=== PATIENT | male | born 1945 | race Caucasian/White ===

== ENCOUNTER 2017-09-28 22:22 | Inpatient (IN) | END 2017-09-30 18:15 | DRG 377 ==

== ENCOUNTER 2018-04-04 06:30 | Inpatient (IN) | payer OTHER ==
[~2018-04-04] VITALS: Ht 182.9 cm; Wt 80.0 kg
[2018-04-04 07:45] VITALS: BP 103/63; PULSE 78; RESP 17
--- NOTE | 2018-04-04 07:45 | NUR ---
PACU PT ARRIVED BY VIA TRANSPORT WITH [facility], PT SCHEDULED FOR SURGERY AT 1000, PER PT HE ARRIVED AT HOSPITAL AT "0530'" THIS MORNING AND WAS TOLD BY STAFF AT [facility], STAFF MEMBER THAT HIS SURGERY WAS SCHEDULED AT 0730 THIS MORNING. Addendum: 04/04/18 at 1013 by TYRONE ALVES RN Amended: Links added.
--- NOTE | 2018-04-04 07:50 | NUR ---
PACU ON ARRIVAL TO PACU PT NOTED TO HAVE REDNESS/EXCORIATION TO SACRAL/BUTTOCK AND UPPER BACK AREA. PICTURES TAKEN. PER PT, EXCORIATION IS "BEING TREATED AT [facility] WITH OINTMENT OR CREAM" Addendum: 04/04/18 at 1016 by TYRONE ALVES RN Amended: Links added.
[2018-04-04 09:32] VITALS: Ht 182.9 cm; Wt 80.0 kg
--- NOTE | 2018-04-04 10:39 | PREAC ---
Date/Time of Note Date/Time of Note DATE: 04/04/18 TIME: 10:33 Anesthesia Eval and Record Evaluation Time Pre-Procedure Interview DATE: 04/04/18 TIME: 10:33 Age 72 Sex male NPO: 8 hrs Preoperative diagnosis Cervical Spine Fracture Planned procedure Posterior Cervical Spine Occiput to C4 Instrumented Fusion Possible Laminectomy. Past Medical History Past Medical History: Includes Cardio: HTN, Dyslipidemia, CAD, CHF (mild) Endo: Hypothyroid Neuro: Other (Hx of Cervcical Neck Fracture 2 months ago due to fall) Heme: Anemia, Other (Hx of Distal DVT) Surgery & Anesthesia Issues No known issue Meds Anticoagulation: No Beta Igor within 24 hr: Yes No Active Prescriptions or Reported Meds Meds reviewed: Yes Allergies Coded Allergies: No Known Allergy (Unverified , 09/29/17) Allergies Reviewed: Yes Labs/Studies Labs Reviewed: Reviewed by anesthesiologist Blood Bank Test 04/04/18 08:24 Antibody Screen NEGATIVE Blood Product Summary Counts Blood Type A POSITIVE Crossmatch Red Blood Cells test: N/A Studies: ECG (NSR), CXR (requested) Pre-procedure Exam Last vitals Vital Signs Date Temp Pulse Resp B/P (MAP) Pulse Ox O2 O2 Flow FiO2 Time Delivery Rate 04/04/18 98.2 78 17 103/63 99 Room Air 07:45 (76) Airway: Adequate mouth opening, Adequate thyromental dist Mallampati: Mallampati III Teeth: Normal Lung: Normal Heart: Normal ASA Physical Status ASA physical status: 3 Emergency: None Planned Anesthetic General/MAC: ETT, A Line Planned Pain Management Parenteral pain med Pre-operative Attestations Prior to commencing anesthesia and surgery, the patient was re-evaluated, there was verification of: *The patient's identity *The results of appropriate recent lab work and preoperative vital signs *The above evaluation not changing prior to induction *Anesthetic plan, risk benefits, alternative and complications discussed with patient/family; questions answered; patient/family understands, accepts and wishes to proceed. MARY MOSS MD Apr 04, 2018 10:39
[2018-04-04] MEDS ORDERED: CEFAZOLIN 1 GM INJ ONE (10:43)
[2018-04-04] MEDS ORDERED: ROCURONIUM 50 MG INJ ONE (10:43)
[2018-04-04] MEDS ORDERED: PROPOFOL 0 ML ONE (10:43)
[2018-04-04] MEDS ORDERED: MIDAZOLAM 1 MG/ML 2 ML INJ ONE (10:44)
[2018-04-04] MEDS ORDERED: D5W-0.45 NACL + KCL 20 MEQ 1,000 ML IV SCH (11:38)
[2018-04-04 11:45] VITALS: BP 117/69; PULSE 64; RESP 17
[2018-04-04] MEDS ORDERED: NACL 0.9% 3 ML SYG IV SCH (12:30)
[2018-04-04] MEDS ORDERED: ACETAMINOPHEN 325 MG TAB PO PRN (12:30)
--- NOTE | 2018-04-04 12:44 | NUR ---
PACU PT TRANSFERRED TO TELE ROOM 623 IN STABLE COND. SURGERY CANCELLED DUE TO NEW ONSET OF AFIB. PT AND SPOUSE UPDATED ON PLAN OF CARE BY . REPORT GIVEN TO [facility]. Addendum: 04/04/18 at 1550 by YTRONE ALVES RN Amended: Links added.
[2018-04-04 13:02] VITALS: BP 94/52; PULSE 97; RESP 16
[2018-04-04 13:20] VITALS: PULSE 100
[2018-04-04] MEDS: SOD CHLORIDE 0.9% 1,000 ML IV SCH ×3 (14:49→21:51)
--- NOTE | 2018-04-04 15:06 | HP ---
DATE OF ADMISSION: 04/04/2018 REASON FOR ADMISSION: Atrial fibrillation. HISTORY OF PRESENT ILLNESS: A 72-year-old male with history of T2 fracture following a traumatic fal l in September 2017, was electively admitted to undergo posterior cervical fusion. Preoperatively, he w as found to be in rapid atrial fibrillation. The patient has no previous history of atrial fibrillat ion. He denies any chest pain or shortness of breath. No abdominal pain, nausea, or vomiting. The patient had developed DVT previously and IVC filter was placed. He also was evaluated for GI ble ed and no source of bleeding was identified previously. SOCIAL HISTORY: The patient denies tobacco or alcohol use. PHYSICAL EXAMINATION: GENERAL: Well-developed, well-nourished male, who is in no apparent distress. VITAL SIGNS: Stable. He is afebrile. HEENT: Extraocular muscles intact. Pupils are equal and reactive to light bilaterally. Sclerae are anicteric. Oropharynx is clear and moist. NECK: Supple, no JVD, no carotid bruits. LUNGS: Clear to auscultation bilaterally. CARDIAC: Irregularly irregular. No audible murmurs or gallops. ABDOMEN: Soft, nontender, nondistended. Normoactive bowel sounds. EXTREMITIES: No clubbing, cyanosis or edema. NEUROLOGICAL: Grossly nonfocal. ASSESSMENT: 1. A 72-year-old male with newly diagnosed atrial fibrillation. 2. Chronic T2 fracture, awaiting the posterior cervical fusion. 3. History of previous DVT, status post IVC filter placement. 4. 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 PLAN: Placed in tele observation, 2D echo. Cardiology consultation was requested and case was discu ssed with Dr. Rushing. If patient is cleared by cardiology, we may proceed with cervical fusion in t he a.m. Dictated By: PRECIOUS KAYE/YAKOV Conf#: [id number] DID#: [id number]
--- NOTE | 2018-04-04 15:12 | NUR ---
Admitted to telemetry floor from PACU for new onset AFib. Here for planned laminectomy, was cancelled due to Afib. Oriented to room, call light use. Skin assessment done, photo taken. Notified Dr. Vizcarra of admission for orders. Discussed plan of care to pt.
[2018-04-04] MEDS ORDERED: SOD CHLORIDE 0.9% 500 ML IV ONE (15:30)
[2018-04-04] MEDS ORDERED: METOPROLOL 5 MG INJ IV PRN (15:30)
[2018-04-04] MEDS ORDERED: DIGOXIN 500 MCG INJ IV ONE (15:30)
[2018-04-04 16:01] VITALS: PULSE 83
--- NOTE | 2018-04-04 16:44 | RADRPT ---
Echocardiogram Report Patient Name: MIRTA MCCABEPatient ID: [id number] : 1945 (73y )Study Date: 04/04/2018 2:56:51 PM Gender: MAccession #: [id number] Tech: Jack Lopez [facility] Location: [facility] Ref.Physician: PRECIOUS MCKENZIE Height(Cm): BSA: Weight(Kg): Quality: Technically Difficult StudyAccount #: Procedures: Echocardiographic Report: Transthoracic echocardiogram with complete 2D, M-Mode, and doppler examination. Indications: Atrial Fibrillation. Measurements: 2D/M Mode Doppler Measurement Value Normal Range Measurement Value Normal Range LVIDd 2D 3.0 [ 4.2 - 5.8 ] cm AV Peak Jorge 1.1 [ 100.0 - 170.0 ] cm/sec LVIDs 2D 2.3 [ 2.5 - 4.0 ] cm AV Peak PG 5.0 [ 2.0 - 9.0 ] mmHg LVPWd 2D 0.7 [ 0.6 - 1.0 ] cm LVOT Peak Jorge 0.5 [ 70.0 - 110.0 ] cm/sec IVSd 2D 1.0 [ 0.6 - 1.0 ] cm LVOT Peak PG 1.0 [ 2.0 - 6.0 ] mmHg AoR Diam 2D 2.7 [ 2.6 - 3.4 ] cm MV E Peak Jorge 0.7 [ 60.0 - 130.0 ] cm/sec EDV 2D 36.2 [ 62.0 - 150.0 ] ml MV A Peak Ojrge 1.2 [ 100.0 - 120.0 ] cm/sec ESV 2D 18.7 [ 21.0 - 61.0 ] ml MV E/A 0.6 [ 0.8 - 1.5 ] ratio EF 2D 48.3 [ 52.0 - 72.0 ] percent MV Decel Time 120 [ 104 - 258 ] msec LA Dimen 2D 3.2 [ 3.0 - 4.0 ] cm Lat E` Jorge 0.1 [ 10.0 - 15.0 ] cm/sec Lateral E/E` 6.8 [ 1.0 - 2.0 ] ratio Med E` Jorge 0.1 cm/sec MV E/A 0.6 [ 0.8 - 1.5 ] ratio Findings: Left Ventricle: Lower limits of normal systolic function. Normal left ventricular cavity size. Normal left ventricular wall thickness. Ejection fraction is visually estimated at 45-50 %. Tissue Doppler/Mitral Doppler indices are consistent with impaired relaxation (Stage I diastolic dysfunction). These segments of the LV are hypokinetic anteroseptum mid segment and apical septum. Right Ventricle: Normal right ventricular size. Normal right ventricular systolic function. Left Atrium: The left atrium is normal in size. Right Atrium: The right atrium is normal in size. Mitral Valve: Normal appearance of the mitral valve. Mild mitral annular calcification. Trace mitral regurgitation. Aortic Valve: Normal appearance of the aortic valve. Tricuspid Valve: Unable to obtain RVSP due to minimal presence of tricuspid regurgitation. Pulmonic Valve: Pulmonic valve not well visualized. Pericardium: Normal pericardium with no significant pericardial effusion. Aorta: Normal aortic root. IVC: The IVC is not well visualized. Conclusions: Lower limits of normal systolic function. Normal left ventricular cavity size. Normal left ventricular wall thickness. Ejection fraction is visually estimated at 45-50 %. Tissue Doppler/Mitral Doppler indices are consistent with impaired relaxation (Stage I diastolic dysfunction). These segments of the LV are hypokinetic anteroseptum mid segment and apical septum. Normal appearance of the mitral valve. Mild mitral annular calcification. Trace mitral regurgitation. Unable to obtain RVSP due to minimal presence of tricuspid regurgitation. Electronically Signed By: Arvind Rushing 2018-04-04 16:43:41 PST
--- NOTE | 2018-04-04 16:48 | CONS ---
DATE OF ADMISSION: 04/04/2018 DATE OF CONSULTATION: 04/04/2018 REASON FOR CONSULTATION: Preoperative evaluation as well as atrial fibrillation. REQUESTING PHYSICIAN: Dr. Mckenzie. HISTORY OF PRESENT ILLNESS: Mr. Moon is a very pleasant 72-year-old male with the history of a prior fall with subsequent cervical neck fracture, prior SVT which patient does not remember the exa ct name, hypertension, coronary artery disease with an [place] in 1990 and states he underwent catheteriza tion at that time but did not have any stents placed, DVT since cervical neck fracture status post in ferior vena cava filter, GI bleed with the holding of Plavix, head and neck cancer status post XRT, h ypothyroidism who presented to undergo surgery for treatment of his cervical neck fracture and on azeb luation underwent an electrocardiogram which was concerning for atrial fibrillation/atrial flutter wi th rapid ventricular response and therefore the surgery was held. The patient was admitted to the lemetry floor. The patient denies chest pain, shortness of breath. He some neck discomfort. No sig nificant lower extremity weakness per patient. PAST MEDICAL HISTORY: As above in HPI. MEDICATIONS PRIOR TO ADMIT: None listed. MEDICATIONS CURRENTLY IN HOSPITAL: Tylenol. ALLERGIES: NO KNOWN DRUG ALLERGIES. SOCIAL HISTORY: Remote tobacco, quit since 1990. Social ETOH. No illicit drug use. FAMILY HISTORY: No history of sudden cardiac or early CAD. REVIEW OF SYSTEMS: As above in HPI. CONSTITUTIONAL: No fevers or chills. PULMONARY: No current shortness of breath. CARDIOVASCULAR: Paroxysmal atrial fibrillation. GASTROINTESTINAL: No vomiting. GENITOURINARY: No hematuria. MUSCULOSKELETAL: Degenerative joint disease. PSYCHIATRIC: The patient denies depression. NEUROLOGIC: No documented history of CVA. ENDOCRINE: No documented history of diabetes mellitus. PHYSICAL EXAMINATION: VITAL SIGNS: Temperature of 97.6, blood pressure ____/52, pulse 97, respiratory rate 16, satting 94% . GENERAL: The patient is alert, awake, no acute distress. NECK: Neck is in a cervical collar. CHEST: Fair air movement throughout. HEART: Currently tachycardic, regular rhythm, normal S1, S2, I/ systolic murmur. ABDOMEN: Positive bowel sounds, soft. EXTREMITIES: No significant pitting edema, 1+ pulses bilaterally posterior tibial. LABORATORY DATA: Most recently from on 09/2017, hemoglobin 12.1, platelet count 272, white count 3.5 . Sodium 136, potassium 3.4, creatinine of 0.5, BUN 9, AST 30, ALT 37. Troponin negative. Lipase 1 11. IMAGING STUDIES: As above in HPI with the chest x-ray reveals no evidence of acute cardiopulmonary d isease, question right upper lobe nodule. ECG reveals a rhythm most consistent with probably atrial fibrillation/atrial flutter and a rate of 1 13, normal axis, normal intervals, inferior and anteroseptal Qs, low voltage. IMPRESSIONS: 1. Preoperative evaluation prior to a cervical neck surgery in a patient with history of myocardial infarction in atrial fibrillation which possibly may be previously noted in the history is written as an SVT. 2. Abnormal electrocardiogram with inferior Qs. Assess for acute coronary syndrome. 3. Supraventricular tachycardia consistent most probably with atrial fibrillation/atrial flutter wit h the mild rapid ventricular response now back in sinus rhythm by telemetry, sinus rhythm/sinus tachy cardia. 4. History of cardiomyopathy with decreased left ventricular unknown EF at this time. 5. Status post prior fall, mechanical by description, with cervical neck fracture. 6. Cervical neck fracture. 7. Hypotension, borderline, with the history of hypertension on beta blockers at baseline. 8. History of myocardial infarction/coronary artery disease in 1990. RECOMMENDATIONS: 1. At this time, I would maintain the patient on telemetry monitoring to follow rhythm and rate cont rol closely. 2. We will give patient a dose of digoxin to assure good heart rate given the borderline hypertensio n at this time and therefore inability to give a beta jay. 3. Check a TSH to be sure subclinical hyperthyroid is not due to any bouts of tachyarrhythmias as th is patient does have a history of hypothyroidism and is on Synthroid. 4. We will complete to rule out for myocardial infarction to ensure the patient's EKG values are chr onic in nature which they most likely are and not due to any recent acute coronary syndrome. 5. We will check a 2D echo for assessment of the patient's ejection fraction, wall motion and major abnormalities. 6. Check a BNP to further assess his current volume status and give patient a small management of fl uid and follow blood pressure response. 6. Further recommendations pertaining to the surgical candidacy of this patient will be made after c ompletion of the above studies. Dictated By: ENRIQUETA KAPADIA/YAKOV Conf#: [id number] DID#: [id number] CC: FERMÍN ALCAZAR MD; PRECIOUS MCKENZIE MD;*EndCC*
[2018-04-04 19:30] VITALS: BP 104/63; PULSE 73; RESP 16
--- NOTE | 2018-04-04 20:27 | CONS ---
Assessment/Plan Assessment/Plan Assessment/Plan (Daily) Date of consultation: 04/04/2089 Consulting service: Neurosurgery This is a 72-year-old male who unfortunately had a slip and fall on a sprinkler approximately 6 months ago. This resulted in a odontoid fracture and an associated unilateral vertebral artery dissection but grossly sensorimotor intact. He was started on aspirin and Plavix at the recommendation of a neuro interventional specialist. The patient unfortunately developed GI bleed and anemia and underwent GI evaluation including scoping that apparently did not reveal any lesions. He also developed DVTs that required placement of IVC filter. The patient has been wearing a rigid cervical collar since the fall. He has been in an acute rehab/snf facility since his fall and has become overall very deconditioned with minimal mobility. The patient's type II odontoid fracture has not healed and as a matter of fact has become displaced. The patient moves around mostly with the use of a wheelchair at this time due to being overall deconditioned as well as a right knee contracture that has developed as a result of chronic knee joint pathology. The patient has been evaluated by me multiple times in clinic setting and we have attempted to schedule him for surgery multiple times in the past but the surgery he has had to be postponed due to various medical problems as discussed above. The patient was eventually cleared by his primary care physician as well as cardiology and was scheduled to undergo occipitocervical fusion today for the treatment of his nonhealed C2 fracture. As the patient was awaiting in the preoperative area prior to the scheduled operation, the patient developed new onset atrial fibrillation with rapid rate. However the patient was hemodynamically stable without chest pain or shortness of breath. After discussing the patient's new development with the anesthesiologist, we decided to postpone the patient's operation for today in order to be safe and minimize intraoperative complications. As the anesthesiologist recommended, the patient will require a new cardiology evaluation. I have subsequently discussed the patient's case with the hospitalist physician, Dr. Vizcarra who will help admit the patient and will subsequently consult cardiology for further evaluation. If the patient is cleared by cardiology, we will then do our best to reschedule the patient with this admission. The patient and his who are at bedside are very eager to proceed with the above operation but at the same time also understand the safety concerns and that we all have his best interest in mind. Past medical history: Please see above Allergies:[No known drug allergies] Review of systems: Denies chest pain or shortness of breath. Family history: Not contributory Social history: Denies EtOH, tobacco, illicit or recreational drug Physical examination: The patient is sitting up on the hospital bed next to his . He is pleasant. Patient is awake alert and oriented 4. Language is fluent. Face is symmetric. Shoulder shrugs are symmetric. Muscle bulk and tone is normal bilateral upper and lower extremities. Deep tendon reflexes are 1+ bilateral upper and lower extremities. Sensation to light touch is grossly normal bilateral upper and lower extremities. Motor strength is 4+ out of 5 bilateral upper and lower extremities except for the right knee extension and flexion that cannot be tested due to knee pain and a contracture that has developed at the joint. There is no Lakshmi sign present bilaterally. There is no dysdiadochokinesia. Toes are downgoing bilaterally. Gait testing has been deferred secondary to the right knee pain and contracture. CERVICAL SPINE: Patient is wearing a rigid cervical collar. There is some tenderness throughout the cervical spine. CERVICAL SPINE ACTIVE RANGE OF MOTION: Deferred due to the patient's fracture. Assessment/plan: The patient has been seen by cardiology and has undergone an echocardiogram. I am told that the patient will be cleared for surgery as long as the rest of his pending labs and tests come back as normal and that the patient remains hemodynamically stable overnight. The patient has been tentatively added to the operating room schedule for tomorrow. The patient and his have also been made aware of this. I have again discussed the risks and benefits of the above operation (occiput to C4 posterior instrumented fusion with use of autologous and allo bone graft and possible laminectomy) in great detail with the patient and his with the risks including bleeding, infection, weakness, numbness, paralysis, difficulty with speech, comatose state, bowel or bladder dysfunction, cerebrospinal fluid leak, injury to the adjacent tissue, failure of improvement of symptoms or worsening of symptoms, need for further surgeries including extension or revision of the instrumented fusion and decompression as well as those risks associated with surgery and general anesthesia including deep venous thrombosis, pulmonary embolism, pneumonia, heart attack, stroke, and . The patient's neck pain may or may not improve with the above procedure. I have also explained to the patient and his that overall the patient is very deconditioned, wheelchair-bound with multiple comorbidities including prior coronary artery disease, myocardial infarction, recent GI bleed and possible pulmonary embolism. All of these comorbidities increase the overall risk of the procedure. The patient and his fully understand the above discussion and wish to proceed with the above surgery. FERMÍN ALCAZAR MD Apr 04, 2018 20:27
--- NOTE | 2018-04-04 22:55 | NUR ---
Patient is refusing turning. I reeducated him on the importance of turning and how it has caused his skin breakdown on his buttocks, but he refuses to turn, saying it is too uncomfortable. New consent for procedure & blood transfusions for tomorrow's surgery signed by patient.
[2018-04-05] VITALS (11 sets, daily range): BP systolic 96–122; BP diastolic 55–68; PULSE 60–89; RESP 16–18
[2018-04-05] MEDS ORDERED: ROCURONIUM 50 MG INJ ONE (07:00)
[2018-04-05] MEDS ORDERED: CEFAZOLIN 1 GM INJ ONE (07:00)
[2018-04-05] MEDS ORDERED: ETOMIDATE 20 MG INJ ONE (07:00)
[2018-04-05] MEDS ORDERED: LIDOCAINE 2% (SDV) 5 ML INJ ONE (07:00)
--- NOTE | 2018-04-05 07:45 | NUR ---
EOSS N: A&Ox4. No complaints of pain. ANTHONY/L extremity neuro checks completed, no changes. R: RA, saturating well, no sob or dyspnea noted. CV: AF controlled. GI: NPO after midnight. : Urinal, approx 650 ml output INTEG: Possible stg 1 vs. excoriation r/t urine. Wound consult ordered. Low-air loss mattress ordered. MS: Bedrest. Refusing turns. Educated on necessity of turns. POC: Cervical fusion scheduled for this afternoon with Dr. Welch; cleared by cardio. Consent signed. Pre-op checklist completed. MRSA swabbed r/t SNF admit. Will endorse to AM nurse.
--- NOTE | 2018-04-05 10:27 | PN ---
DATE: 04/05/2018 SUBJECTIVE: The patient is doing well. No new complaints. Vital signs are stable. Heart rate is 6 6. Neck is with cervical collar. CHEST: Lungs clear to auscultation bilaterally. HEART: Regular rate and rhythm. No murmurs, rubs or gallops. ABDOMEN: Soft, nontender, nondistended, normoactive bowel sounds. EXTREMITIES: No clubbing, cyanosis, or edema. NEUROLOGIC: Grossly nonfocal. ASSESSMENT AND PLAN: 1. A 72-year-old male with chronic odontoid fracture. 2. Newly diagnosed atrial fibrillation, converted to normal sinus rhythm. 3. Mildly reduced ejection fraction of 45% to 50%. 4. History of deep venous thrombosis, status post inferior vena cava filter placement. PLAN: 1. May proceed with a posterior cervical fusion as previously scheduled. The patient was cleared by flexographic printing machinist, Dr. Rushing 2. Case was discussed with Dr. Welch. 3. The patient is aware of the plan of care. Dictated By: PRECIOUS KAYE/YAKOV Conf#: [id number] DID#: [id number]
--- NOTE | 2018-04-05 11:02 | CONS ---
Assessment/Plan Assessment/Plan Hospital Course (Demo Recall) IMPRESSIONS: 1. Preoperative evaluation prior to a cervical neck surgery in a patient with history of myocardial infarction in atrial fibrillation which possibly may be previously noted in the history is written as an SVT.-neg trop >3/EF 45% by echo this admit with no sig valve abnl. 2. Abnormal electrocardiogram with inferior Qs. Assess for acute coronary syndrome. 3. Supraventricular tachycardia consistent most probably with atrial fibrillation/atrial flutter with the mild rapid ventricular response now back in sinus rhythm by telemetry, sinus rhythm/sinus tachycardia.- Now back in SR 4. History of cardiomyopathy with decreased left ventricular unknown EF at this time. 5. Status post prior fall, mechanical by description, with cervical neck fracture. 6. Cervical neck fracture. 7. Hypotension, borderline, with the history of hypertension on beta blockers at baseline. 8. History of myocardial infarction/coronary artery disease in 1990. Recc: -Tele -Patient ok to proceed to OR at moderate CV risk. Check post-op ECG and watch for signs/sx of cardiovascular complications including but not limited to onset of chest pain/sob/uncontrolled arrythmia or development of CHF -pain control Consultation Date/Type/Reason Admit Date/Time Apr 04, 2018 at 06:30 Initial Consult Date 04/04/18 Type of Consult Cardiology Reason for Consultation preop Requesting Provider: PRECIOUS MCKENZIE MD Date/Time of Note DATE: 04/05/18 TIME: 10:58 Exam/Review of Systems Vital Signs Vitals Vital Signs Date Temp Pulse Resp B/P (MAP) Pulse Ox O2 O2 Flow FiO2 Time Delivery Rate 04/05/18 66 08:01 04/05/18 97.5 16 103/60 98 Room Air 07:49 (74) Intake and Output 04/04/18 04/04/18 04/05/18 1515:00 23:00 07:00 IntakeIntake Total 1280 ml 900 ml OutputOutput Total 300 ml BalanceBalance 980 ml 900 ml Exam Exam Review of Systems: CONSTITUTIONAL: No fevers, chills. PULMONARY: No sob CARDIOVASCULAR: No chest pain/palpitations GASTROINTESTINAL: No nausea/vomiting. GENITOURINARY: No hematuria/dysuria. MUSCULOSKELETAL: No myagias/arthalgias. PSYCHIATRIC: The patient denies depression. NEUROLOGIC: No weakness Constitutional: alert Head: normocephalic Neck: other (in collar) Respiratory: clear to auscultation Cardiovascular: regular rate and rhythm Gastrointestinal: soft, non-tender Musculoskeletal: muscle tone (normal) Extremities: edema (none) Neurological: other (No focal deficits) Labs Results 24hrs Laboratory Tests Test 04/04/18 14:29 04/04/18 17:38 04/05/18 00:33 04/05/18 05:18 Troponin I < 0.012 < 0.012 < 0.012 0.015 Hemoglobin A1c 5.3 Triglycerides Level 92 Cholesterol Level 111 LDL Cholesterol, 65 Calculated HDL Cholesterol 28 L Cholesterol/HDL Ratio 3.9 Medications Medications Current Medications IV Flush (NS 3 ml) 3 ml PER PROTOCOL IV ; Start 04/04/18 at 12:30 Acetaminophen (Tylenol Tab) 650 mg Q6H PRN PO .PAIN 1-3 OR TEMP; Start 04/04/18 at 12:30 Sodium Chloride 1,000 ml @ 75 mls/hr [id number] IV Last administered on 04/04/18at 21:51; Admin Dose 75 MLS/HR; Start 04/04/18 at 14:30 Metoprolol Tartrate (Lopressor) 2.5 mg Q4H PRN IV HR>110 Hold SBP<95; Start 04/04/18 at 15:30 ENRIQUETA CAO Apr 05, 2018 11:02
[2018-04-05] MEDS ORDERED: BUPIVACAINE 0.5% (SDV) 30 ML INJ ONE (15:42)
[2018-04-05] MEDS ORDERED: GELATIN SIZE 100 SPONGE ONE (15:42)
[2018-04-05] MEDS ORDERED: LIDOCAINE 1%/EPI (1:100,000) (MDV) 20 ML ONE (15:42)
[2018-04-05] MEDS ORDERED: POVIDONE IODINE 10% 28.4 GM OINT ONE (15:43)
[2018-04-05] MEDS ORDERED: POLYMYXIN/BACITRACIN 1L IRRIG ONE (15:43)
--- NOTE | 2018-04-05 16:00 | NUR ---
Pt having surgery today. Report given to Gia ZENDEJAS. bedside, awaiting for procedure. VS stable, consent signed and placed into chart.
--- NOTE | 2018-04-05 16:10 | PREAC ---
Date/Time of Note Date/Time of Note DATE: 04/05/18 TIME: 16:08 Anesthesia Eval and Record Evaluation Time Pre-Procedure Interview DATE: 04/05/18 TIME: 16:08 Age 72 Sex male NPO: 8 hrs Preoperative diagnosis Cervical fracture Planned procedure Cervical Fusion Occipital-C4 Past Medical History Past Medical History: Includes Cardio: HTN, Dyslipidemia, CAD, PTCA/Stent Surgery & Anesthesia Issues No known issue Meds Anticoagulation: No Beta Igor within 24 hr: No Reason Beta Igor not given: Pt. not on B-Igor No Active Prescriptions or Reported Meds Current Medications IV Flush (NS 3 ml) 3 ml PER PROTOCOL IV ; Start 04/04/18 at 12:30 Acetaminophen (Tylenol Tab) 650 mg Q6H PRN PO .PAIN 1-3 OR TEMP; Start 04/04/18 at 12:30 Sodium Chloride 1,000 ml @ 75 mls/hr [id number] IV Last administered on 04/04/18at 21:51; Admin Dose 75 MLS/HR; Start 04/04/18 at 14:30 Metoprolol Tartrate (Lopressor) 2.5 mg Q4H PRN IV HR>110 Hold SBP<95; Start 04/04/18 at 15:30 Meds reviewed: Yes Allergies Coded Allergies: No Known Allergy (Unverified , 09/29/17) Allergies Reviewed: Yes Labs/Studies Labs Reviewed: Reviewed by anesthesiologist test: N/A Studies: ECG Pre-procedure Exam Last vitals Vital Signs Date Temp Pulse Resp B/P (MAP) Pulse Ox O2 O2 Flow FiO2 Time Delivery Rate 04/05/18 97.7 89 18 122/68 98 Room Air 15:39 (86) Airway: Adequate mouth opening, Adequate thyromental dist Mallampati: Mallampati III Teeth: Normal Lung: Normal Heart: Normal ASA Physical Status ASA physical status: 3 Emergency: None Planned Anesthetic General/MAC: ETT Planned Pain Management Parenteral pain med Pre-operative Attestations Prior to commencing anesthesia and surgery, the patient was re-evaluated, there was verification of: *The patient's identity *The results of appropriate recent lab work and preoperative vital signs *The above evaluation not changing prior to induction *Anesthetic plan, risk benefits, alternative and complications discussed with patient/family; questions answered; patient/family understands, accepts and wishes to proceed. LAURA NAVARRETE MD Apr 05, 2018 16:10
[2018-04-05] MEDS ORDERED: MIDAZOLAM 1 MG/ML 2 ML INJ ONE (16:16)
[2018-04-05] MEDS ORDERED: PHENYLephrine (100 MCG/ML) 5ML SYG ONE (16:31)
[2018-04-05] MEDS ORDERED: HEMOSTATIC MATRIX/ THROMBIN 1 EA SYG ZFS ONE (18:28)
[2018-04-06] VITALS (40 sets, daily range): BP systolic 80–142; BP diastolic 51–78; PULSE 70–113; RESP 8–19
[2018-04-06] MEDS ORDERED: CEFAZOLIN 1 GM INJ ONE ×3 (00:44)
[2018-04-06] MEDS ORDERED: LIDOCAINE 2% (SDV) 5 ML INJ ONE (00:44)
[2018-04-06] MEDS ORDERED: ETOMIDATE 20 MG INJ ONE (00:44)
[2018-04-06] MEDS ORDERED: ROCURONIUM 50 MG INJ ONE (00:44)
[2018-04-06] MEDS ORDERED: ONDANSETRON 4 MG INJ ONE (01:13)
[2018-04-06] MEDS ORDERED: NEOMYC/POLYMYX/BACIT 30 GM OINT ONE (01:19)
--- NOTE | 2018-04-06 01:45 | NUR ---
RECEIVED REPORT FROM CRISTIANA TRENT.
--- NOTE | 2018-04-06 01:56 | PAC ---
Date/Time of Note Date/Time of Note DATE: 04/06/18 TIME: 01:55 Post-Anesthesia Notes Post-Anesthesia Note Last documented vital signs Vital Signs Date Temp Pulse Resp B/P (MAP) Pulse Ox O2 O2 Flow FiO2 Time Delivery Rate 04/06/18 98.0 01:50 04/05/18 79 16:00 04/05/18 18 122/68 98 Room Air 15:39 (86) Activity: WNL Respiratory function: WNL Cardiovascular function: WNL Mental status: Baseline Pain reasonably controlled: Yes Hydration appropriate: Yes Nausea/Vomiting absent: Yes Comments BP:105/54, P:74, spo2:100%, T:98,9 LAURA NAVARRETE MD Apr 06, 2018 01:56
--- NOTE | 2018-04-06 01:59 | SIPON ---
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
[2018-04-06] MEDS ORDERED: LORAZEPAM 2 MG INJ IV PRN (02:00)
[2018-04-06] MEDS ORDERED: morphine (1 MG/ML) 10ML SYRINGE IV PRN ×2 (02:00)
[2018-04-06] MEDS ORDERED: HYDROmorphONE 0.5 MG/0.5 ML SYG IV PRN (02:00)
[2018-04-06] MEDS ORDERED: NALOXONE (0.4 MG/ML) INJ IV PRN (02:00)
[2018-04-06] MEDS ORDERED: MEPERIDINE 25 MG INJ IV PRN (02:00)
[2018-04-06] MEDS ORDERED: hydrALAzine 20 MG INJ IV PRN (02:00)
[2018-04-06] MEDS ORDERED: DIPHENHYDRAMINE 50 MG INJ IV PRN (02:00)
[2018-04-06] MEDS ORDERED: LABETALOL HCL 20MG INJ IV PRN (02:00)
[2018-04-06] MEDS ORDERED: ONDANSETRON 4 MG INJ IV PRN ×2 (02:00)
[2018-04-06] MEDS ORDERED: traMADol 50 MG TAB PO PRN (02:00)
[2018-04-06] MEDS ORDERED: METOCLOPRAMIDE 10 MG INJ IV PRN (02:00)
[2018-04-06] MEDS: HYDROCODONE/APAP (10/325) TAB PO SCH ×4 (02:00→20:26)
[2018-04-06] MEDS ORDERED: EPHEDrine SULFATE 50 MG/5 ML SYG IV PRN (02:00)
[2018-04-06] MEDS ORDERED: BISACODYL 10 MG SUPP PR PRN (02:00)
--- NOTE | 2018-04-06 02:15 | NUR ---
PATIENT ARRIVED TO FLOOR ACCOMPANIED BY RN AND MD.
[2018-04-06] MEDS: D5W-0.45 NACL + KCL 20 MEQ 1,000 ML IV SCH ×2 (02:28→18:34)
[2018-04-06] MEDS: CEFAZOLIN 1 GM/50 ML (PMX) 50 ML IVPB SCH ×3 (02:28→18:34)
[2018-04-06] MEDS: morphine 4 MG/ML VIAL IV PRN ×2 (02:46→03:14)
--- NOTE | 2018-04-06 03:58 | NUR ---
MD ALCAZAR CALLED TO CHECK ON PATIENT. GAVE REPORT TO . ASKED MD IF HE WANTED SCDS AND MD STATED PATIENT HAS HISTORY OF DVT AND HAD IVC FILTER PLACED. MD SAID NOT TO PLACE SCDS.
--- NOTE | 2018-04-06 05:07 | NUR ---
MD ALCAZAR VOICE SERVICE CALLED TO NOTIFY PATIENT SBP IN 80S. AWAITING RETURN CALL.
--- NOTE | 2018-04-06 05:29 | NUR ---
NATHALY ALCAZAR TO INFORM HIM OF PATIENT BLOOD PRESSURE
--- NOTE | 2018-04-06 05:41 | NUR ---
MD MCKENZIE NOTIFIED PATIENT SYSTOLIC BLOOD PRESSURE IN 80S. MD MCKENZIE ORDERED 500 CC BOLUS OF NORMAL SALINE.
[2018-04-06] MEDS ORDERED: SOD CHLORIDE 0.9% 500 ML IV ONE ×2 (06:00→07:00)
[2018-04-06] MEDS: PANTOPRAZOLE 40 MG INJ IV SCH (06:15)
--- NOTE | 2018-04-06 06:30 | NUR ---
MD MCKENZIE NOTIFIED PATIENT BP STILL IN 80S AFTER 500 CC BOLUS. ORDERED ANOTHER 500 CC BOLUS OF NS AND SAID TO CALL MD CAO IF PATIENT DOES NOT RESPOND TO 2ND BOLUS.
--- NOTE | 2018-04-06 07:05 | NUR ---
PATIENT TEMP CONSISTENTLY AT 93-94 F ORALLY AND AXILLARY WITH ETIENNE HUGGER ON. RECTAL PROBE INSERTED TO OBTAIN MORE ACCURATE TEMPERATURE. TEMPERATURE RECTALLY IS 94.8.
[2018-04-06] MEDS: DOCUSATE SODIUM 100 MG CAP PO SCH ×2 (09:00→20:26)
--- NOTE | 2018-04-06 11:04 | NUR ---
PT EVALUATION , herapy day number 1 Evaluation Start Time 10:00 Evaluation Total Time 0 min Subjective Current complaint of pain Pain Scale NUMERIC Pain Intensity 5 (0-10) Patient Stated Goal for Pain Relief 0 (0-10) Pain Level Comment NECK AND RT SHOULDER / ARM . Pre Treatment Vital Signs Stable Yes - BP:101/63 HR:97 Exercise Assessment Label Bilat Lower Extremity Exercise Type Active ROM Additional Exercise Comments AP, KNEE FLEX, EXT, SAQ Supine to Sit Maximum Assist Transfer Sit to Stand Ability Maximum Assist Bed Mobility Sit to Supine Maximum Assist Sitting Tolerance 15 min Gait Assist Levels Dependent Assistive Devices Front Wheel Walker Ambulation Distance 0 feet Additional Gait Comments STOOD UP W/FWW FEW SECONDS WITH MAX A , U/S TO RIVER UP STRAIGHT . Weight Bearing Assessment Label Bilat Lower Extremity Weight Bearing Status Full Weight Bearing Static Sitting Balance Fair minus Dynamic Sitting Balance Good Standing Static Balance Poor Dynamic Standing Balance Poor Additional Balance Assessments Comments W/FWW Safety Judgement Fair Activity Tolerance Poor Equipment Present Douglas Catheter IV pump Additional Equipment Present 02 2ML/ NC . Post Treatment Pain Intensity 5 0-10 Quality Indicators Dizziness Weak Cough Variance Documentation P/S SEE PT NOTE . PT Technical Record Comment PT EVALUATION , RN CLEARED , PATIENT ALERT , AWAKE AGREEABLE , PATIENT VERY SLOW , DECREASED MOTIVATION , ANXIOUS , FEARFUL OCC, ANGRY , REQUIRES MAX VC'S AND ENCOURAGEMENT FOR PARTICIPATION . PATIENT IS A 72 Y/O MALE WITH PMH: H.OF FALL, DVT WITH FILTER PLACEMENT , H.OF VERTEBRAL ARTERY DISSECTION , TYPE 11 ODONTOID FRACTURE, CHRONIC , NON HEALED WITH C1-C2 FACET SUBLUXATION AND INSTABILITY SINCE SEPTEMBER 2017 , ON 04/06/18 UNDERWENT OCCIPUT TO C4 POSTERIOR INSTRUMENTATION FUSION , C1-C2 FORAMINOTOMY, PATIENT FOUND IN BED IN SUPINE POSITION , WEARING RIGID CERVICAL COLLAR, INSTRUCTED HIM IN SAFETY, A/ROM BLE'S , SPINE PRECAUTION , PATIENT C/O RUE , AND RT KNEE PAIN AND WEAKNESS , PATIENT REQUIRES MAX A FOT BED MOBILITY , SUPINE TO SIT WITH HOB UP TO 50 DEGREE , PATIENT WITH MAX A STOOD UP FEW SECONDS , BUT DUE TO SEVERE GENERALIZED WEAKNESS , RT KNEE , AND RT SHOULDER PAIN AND WEAKNESS , UNABLE TO STAND UP STRAIGHT , RETURNED TO BED WITH MAX A X2, RN IN ROOM , ASSISTING PT DURING PT SESSION , VS STABLE BP:101/63 HR:97 , TOLERATED TREATMENT WELL , A: PATIENT TRANSFERRED FROM [facility] TO [facility] FOR NECK SURGERY, DC PLANNING ING PER MD RECOMMENDATION , PATIENT IS A GREAT CANDIDATE FOR ARU, IF [facility] DIDN'T ACCEPT HIM RECOMMEND RETURN TO SNF/REHAB AGAIN . P: PT BID X6, DAILY X1 ( BED MOBILITY BLE'S , THERA EXE'S BLE'S , ROM EXE'S BLE'S , LOG ROLL TRAINING , SIT TO STAND TR , PRE-GAIT TR W/FWW , ADVANCE TO GAIT TR W/FWW WHEN / IF ABLE , PATIENT EDUCATION TRAINING .
--- NOTE | 2018-04-06 11:23 | PN ---
DATE: 04/06/2018 SUBJECTIVE: The patient is doing well. Pain is well controlled. No complaints of focal weakness or numbness. OBJECTIVE VITAL SIGNS: Systolic blood pressure is 85, heart rate is 64. NECK: In rigid cervical collar. LUNGS: Clear to auscultation bilaterally. HEART: Regular rate and rhythm. No murmurs or gallops. ABDOMEN: Soft, nontender, nondistended, normoactive bowel sounds. EXTREMITIES: No clubbing, cyanosis, or edema. NEUROLOGIC: Grossly nonfocal. ASSESSMENT: 1. A 72-year-old male with nonhealed C1-C2 facet subluxation and instability, postoperative day #1 o ccipital to C4 posterior instrumented fusion, C1-C2 foraminotomy. 2. Chronic hypotension. 3. Paroxysmal atrial fibrillation, now in normal sinus rhythm. 4. History of deep venous thrombosis, status post inferior vena cava filter placement. PLAN: 1. Continue postop care. 2. IV fluid hydration. 3. Continue ICU monitoring until blood pressure is stable. 4. Neurosurgical and cardiology followup. Dictated By: PRECIOUS KAYE/NTS Conf#: [id number] DID#: [id number] CC: FERMÍN ALCAZAR MD;*EndCC*
--- NOTE | 2018-04-06 13:20 | CONS ---
Assessment/Plan Assessment/Plan Hospital Course (Demo Recall) IMPRESSIONS: 1. Preoperative evaluation prior to a cervical neck surgery in a patient with history of myocardial infarction in atrial fibrillation which possibly may be previously noted in the history is written as an SVT.-neg trop >3/EF 45% by echo this admit with no sig valve abnl. -Now post-op day #1 s/p cervical fusion and laminectomy 2. Abnormal electrocardiogram with inferior Qs. Assess for acute coronary syndrome. 3. Supraventricular tachycardia consistent most probably with atrial fibrillation/atrial flutter with the mild rapid ventricular response now back in sinus rhythm by telemetry, sinus rhythm/sinus tachycardia.- Now back in SR 4. History of cardiomyopathy with decreased left ventricular unknown EF at this time. 5. Status post prior fall, mechanical by description, with cervical neck fracture. 6. Cervical neck fracture. 7. Hypotension, borderline, with the history of hypertension on beta blockers at baseline. 8. History of myocardial infarction/coronary artery disease in 1990. 9, Hotn-borderline improved with IVF Recc: -IN ICU -follow BP/HR/rhythm clsoely -Contineu IVF and follow volume status -routine pot-op care -pain control Consultation Date/Type/Reason Admit Date/Time Apr 04, 2018 at 06:30 Initial Consult Date 04/04/18 Type of Consult Cardiology Reason for Consultation cardiomyopathy Requesting Provider: PRECIOUS MCKENZIE MD Date/Time of Note DATE: 04/06/18 TIME: 13:16 Exam/Review of Systems Vital Signs Vitals Vital Signs Date Temp Pulse Resp B/P (MAP) Pulse Ox O2 O2 Flow FiO2 Time Delivery Rate 04/06/18 109 12:00 04/06/18 2.0 11:34 04/06/18 95.1 13 106/65 Nasal 11:00 (79) Cannula 04/06/18 100 07:00 Intake and Output 04/05/18 04/05/18 04/06/18 1515:00 23:00 07:00 IntakeIntake Total 500 ml 1800 ml 950 ml OutputOutput Total 650 ml 200 ml BalanceBalance -150 ml 1800 ml 750 ml Exam Exam Review of Systems: CONSTITUTIONAL: No fevers, chills. PULMONARY: in collar CARDIOVASCULAR: No chest pain/palpitations GASTROINTESTINAL: No nausea/vomiting. GENITOURINARY: No hematuria/dysuria. MUSCULOSKELETAL: No myagias/arthalgias. PSYCHIATRIC: The patient denies depression. NEUROLOGIC: No weakness Constitutional: alert Psych: no complaints Head: normocephalic Neck: other (collar in place) Respiratory: diminished breath sounds (at bases/B) Cardiovascular: regular rate and rhythm Gastrointestinal: soft, non-tender Musculoskeletal: muscle tone (mild generalized) Extremities: edema (trace/B) Neurological: focal weakness (none) Medications Medications Current Medications IV Flush (NS 3 ml) 3 ml PER PROTOCOL IV ; Start 04/04/18 at 12:30 Metoprolol Tartrate (Lopressor) 2.5 mg Q4H PRN IV HR>110 Hold SBP<95; Start 04/04/18 at 15:30 Potassium Chloride/Dextrose/ Sod Cl 1,000 ml @ 100 mls/hr Q10H IV Last administered on 04/06/18at 02:28; Admin Dose 100 MLS/HR; Start 04/06/18 at 01:49 Acetaminophen/ Hydrocodone Bitart ([place] (10/325)) 2 tab Q6H PO ; Start 04/06/18 at 02:00 Tramadol HCl (Ultram) 100 mg Q4H PRN PO .PAIN 6-10; Start 04/06/18 at 02:00 Hydromorphone HCl (Dilaudid) 0.2 mg Q1H PRN IV .BREAKTHROUGH PAIN; Start 04/06/18 at 02:00 Cefazolin Sodium 50 ml @ 100 mls/hr Q8H IVPB Last administered on 04/06/18at 02:28; Admin Dose 100 MLS/HR; Start 04/06/18 at 02:00; Stop 04/06/18 at 18:29 Ondansetron HCl (Zofran Inj) 4 mg Q6H PRN IV NAUSEA/VOMITING; Start 04/06/18 at 02:00 Bisacodyl (Dulcolax Supp) 10 mg DAILY PRN MA .CONSTIPATION; Start 04/06/18 at 0 2:00 Docusate Sodium (Colace) 100 mg BID PO ; Start 04/06/18 at 09:00 Pantoprazole (Protonix Iv) 40 mg DAILY@06 IV Last administered on 04/06/18at 06:15; Admin Dose 40 MG; Start 04/06/18 at 06:00 Naloxone HCl (Narcan) 0.2 mg Q2M PRN IV .RR 8 BREATHS/MIN OR LESS; Start 04/06/18 at 02:00 ENRIQUETA CAO Apr 06, 2018 13:20
--- NOTE | 2018-04-06 13:46 | NUR ---
PT NOTE , ATTEMPTED TO SEE THE PATIENT FOR BID TREATMENT IN PM , PER RN REQUEST WILL HOLD PT IN PM DUE TO PATIENT C/O FATIGUE POST PT TREATMENT IN AM .PLAN TO FOLLOW UP TOMORROW .
--- NOTE | 2018-04-06 14:39 | NUR ---
SKIN ASSESSMENT: Wound NurseGilma attempted for skin assessment this AM. Patient request wound nurse to come in the afternoon. 2nd attempted for skin assessment. Spoke with Primary RNCris. Per RN, patient does not want skin assessment at this time. Recommendation based on photo documentation. Sacrococcyx to bilateral buttocks incontinent associated dermatitis with fungal rashes. Recommended to cleanse with foam cleanser. Pat dry. Dust with Nystatin powder BID. Then, apply barrier cream (Calazime) for each incontinent episode. Discussed plan of care with Cris ZENDEJAS. RN to obtain wound care recommendations from . ABIMBOLA FrederickN RN CWOCN
--- NOTE | 2018-04-06 19:58 | OPR ---
Date/Time of Note Date/Time of Note DATE: 04/06/18 TIME: 19:56 Operative Report Procedure Date: Apr 05, 2018 Preoperative Diagnosis Please see below. Postoperative Diagnosis Please see below. Operation/Procedure Performed Please see below. Surgeon see signature line Software Engineer Mobile None Anesthesia Type: general Estimated Blood Loss: 150 - 200 ml's (200cc) Transfusion none Specimen None Grafts/Implants Please see below. Tubes/Drains None Complications none Pt Condition Post Procedure: stable Disposition: other (ICU) Procedure Description Date of operation: 04/05/2018 Operating surgeon: Fermín Welch M.D. Preoperative diagnosis: 1. Type II non-healed odontoid fracture with C1-C2 subluxation and instability 2. Right C2 pars interarticularis fracture and foramen transversarium fracture with associated right vertebral artery dissection Post operative diagnosis: 1. Type II non-healed odontoid fracture with C1-C2 subluxation and instability 2. Right C2 pars interarticularis fracture and foramen transversarium fracture with associated right vertebral artery dissection Procedure(s) performed: 1. Posterior occipitocervical arthrodesis 2. Posterior C1-C4 arthrodesis 3. Occiput to C4 posterior instrumentation ([place] large occipital plate with 6, 8, 11 millimeter screws, 40 mm and 39 mm threaded/smooth shank C1 lateral mass screws, 14 mm and 18 mm lateral mass screws at C3 and C4) (C1-C2 posterior cable/wire fixation) 4. Bilateral C1-C2 posterior foraminotomies 5. Morselized local autologous bone graft harvest 6. Structural tricortical allograft placement at C1-C2 interlaminar space 7. Morselized alllograft bone placement (cancellus bone chips and demineralized bone matrix putty) 8. CPT code modifier 22 for excessive difficulty with positioning the patient, posterior instrumentation and arthrodesis secondary to the patient's difficult anatomy including a kyphotic thoracic spine with an unstable fracture. This added over 2 hours of time to the length of the above surgery. 9. Intraoperative fluoroscopy with professional interpretation 10. Intraoperative neurophysiologic monitoring including SSEP, MEP and EMG testing Indication for procedure: Please acute inpatient consultation note for a full set of indications. Description of operative procedure: The patient was brought to the operating room and after general anesthesia was obtained, a pre-positioning set up neurophysiologic signals was obtained. Then, his head was placed in the Ness head of partner development. Keeping his rigid cervical collar on, he was then placed prone onto chest rolls, his arms were tucked by his side and all pressure points were noted and padded appropriately. He was then placed in a tuck position keeping his neck pointing straight forward. Serial lateral x-rays taken to assess the anteriorly displaced type II odontoid fracture. Multiple attempts were made to distract the patient's neck and tried to extend his neck to try to reduce the odontoid fracture. The fracture could not be significantly reduced as the patient's fracture at this point become chronic and likely sclerotic in nature. The patient's head and neck was then placed in a tuck type position and fixed to the table in that position. His shoulders were taped down. Another lateral x-ray was taken to confirm that the patient's head and neck were pointing straight forward. Then, a midline occipitocervical incision was marked from just below the inion to mid cervical region. Then a strip of hair was shaven in the occipital area. After the skin was prepped and draped under standard sterile fashion, local anesthetics were infiltrated into the marked incision. The incision was initially caught from approximately C1 down to C4 region. Subperiosteal dissection was carried down the spinous processes and lamina from C1-C4. The exposure was carried out further laterally and the C3, C4 lateral masses, the C2-3 joint were exposed fully. Inspection of the C1-C2 level revealed gross instability. The posterior C1 arch was dissected further laterally. The C1-C2 foramen was exposed and the exiting C2 nerve roots were exposed and protected. The venous plexus in this region was then coa gulated to help expose the C1 lateral masses bilaterally. A partial C1-C2 laminotomy removing the overhang of the C1 posterior lamina needed to be done on the left side to fully expose the C1 lateral mass. The right C1 lateral mass was covered by bony process that appeared to be redundant extension of the C1 posterior arch. This had to be removed to fully expose the right C1 lateral mass. Next the C1-C2 synovium was located, cut and decorticated. Inspection of the C1-C2 joint space is further confirmed gross instability. The anterior subluxation at C1-C2 facets again could not be reduced. A starting entry point was drilled at the mid C1 lateral masses bilaterally under direct lateral fluoroscopy. The hand-held drill was then used to cannulate the C1 lateral masses heading towards the C1 anterior tubercle while medializing under direct lateral fluoroscopy serially advancing the length of the drill bit and periodically checking the relief worker hole with the probe until the anterior cortex was breached. Each of the relief worker holes was fully tapped under direct lateral fluoroscopy. Proper size threaded/smooth shank lateral mass screws were then inserted under direct lateral fluoroscopy achieving bicortical purchase on each side. The proximal C2 pars interarticularis on each side was exposed. An attempt was made to cannulate the C2 pars interarticularis for bilateral pars fixation. However, the patient's right C2 pars fracture did not allow safe cannulation of the right C2 pars. It was also difficult to cannulate the left C2 pars due to the patient's significantly kyphotic thoracic spine that prevented proper angulation of the drill to keep parallel to the angle of the pars interarticularis. Therefore, fixation of C2 pars interarticularis was not possible. The C3 and C4 lateral masses were then cannulated along the Magerl trajectory to a depth of 14 mm. Each of the relief worker holes was checked with a probe and the outer cortex was under tapped. Lateral mass screws were then inserted at C3 and C4 bilaterally achieving good purchase. Next, for fixation of C1-C2, we passed a dual cable under the C1-C2 lamina after dissecting and developing the epidural space from C1-C2. Since the top of the C1 posterior arch was almost totally abutting the of the occipital bone, a very small suboccipital craniectomy at that of the occipitocervical junction had to be done in urgent made more room to pass the cables from above the C1 posterior arch. All the bone that was removed was harvested for later grafting. Next, due to the fact that there was gross instability at the C1-C2 junction and that the odontoid fracture could not be reduced, for further points of fixation, we needed to extend the instrumented fusion to the occiput. The incision was then extended superiorly until the rest of the occiput was exposed. The large occipital plate was then selected, positioned appropriately to allow proper aligning of the occipital footplates with the lateral mass screws. The specialized hand drill was then used to cannulate relief worker holes through each of the occipital plate holes. The length of the drill was then serially adjusted until the dura was reached at each of the relief worker holes. Each of the relief worker holes was then fully tapped. Proper size screws were inserted for bicortical purchase. The joey template was used to measure the proper length on the pre- bent occipitocervical rods. The rods were then cut to the appropriate length. Next, a tricortical structural allograft was placed at the C1-C2 interlaminar space and cut to the appropriate thickness. Next the wound was copiously irrigated with antibiotic solution. The surfaces of the C1-C2 lamina occiput, C2-3, C3-4 facets were fully decorticated. The structural allograft was placed at the C1-C2 interlaminar space and kept in position by then fully tightening the dual cables across the C1-C2 lamina using the special cable wood boring machine operator and crimper. Once the cables were crimped, the excess cables were cut. The previously cut bent rods were then placed and the setscrews were inserted and fully tightened with a torque and counter torque wrench devices. A combination of the locally harvested morcellized autograft together with morcellized allograft cancellous bone chips and generalized bone matrix putty was placed over the posterior decorticated surfaces from the occiput down to C4. A final lateral x-ray was taken showing good positioning of the hardware. The muscle and fascia layers were then reapproximated with interrupted sutures. The dermal area was reapproximated with interrupted sutures. The skin was reapproximated with a simple running Rapide 3-0 suture. An Aqua-Seal dressing was placed over the incision. A rigid cervical collar was placed around the patient's neck. He was then placed supine on the hospital bed. He was woken up, extubated and transported to the ICU in stable condition. The patient's intraoperative nerve physiologic signals were stable throughout the procedure. The patient was awake and alert and moving his upper and lower extremities well to command in the ICU. Estimated blood loss: 200 cc Blood products administered: None Packs/drains: None Type of anesthesia: General Incision: Midline occipitocervical Skin closure: Simple running Rapide 3-0 suture Wound classification: Clean Specimen removed: None Patient's condition: Stable Prognosis: Good FERMÍN WELCH MD Apr 06, 2018 19:58
--- NOTE | 2018-04-06 20:16 | NUR ---
MOTOR ANALYSTMECCA LORENZO CALLED AND INFORMED THAT CANNOT DO XRAY IF PATIENT CANNOT STAND. MD ALCAZAR NOTIFIED. MD ALCAZAR SAID JUST WANTS AP LATERAL XRAY AND ASKED ME TO RELAY THAT INFORMATION TO MECCA. CALLED MECCA LORENZO BACK AND INFORMED HIM THAT MD ALCAZAR SAYS HE DOES NOT NEED TO STAND AND THAT ALL HE WANTS IS AP LATERAL XRAY. MAURA SAID HE WILL COME PICK PATIENT UP.
--- NOTE | 2018-04-06 21:46 | NUR ---
ARTERIAL LINE REMOVED. PRESSURE MANUALLY HELD FOR 10 MINUTES, SITE ASSESSED NO BLEEDING, GAUZE AND TAPE PLACED. ARTERIAL LINE SITE REASSESSED 10 MINUTES LATER STILL NO SIGNS OF BLEEDING. GAUZE REINFORCED. PATIENT TOLERATED REMOVAL WELL.
--- NOTE | 2018-04-06 22:00 | NUR ---
MD ALCAZAR AT [facility]. Addendum: 04/07/18 at 0537 by WILLY LEBLANC RN MD ALCAZAR INFORMED PATIENT THAT IT IS OK TO TAKE OFF CERVICAL COLLAR TO EAT AND DRINK.
--- NOTE | 2018-04-06 23:40 | PN ---
Date/Time of Note Date/Time of Note DATE: 04/06/18 TIME: 23:39 Copies To: Assessment/Plan Date of progress note: 04/06/2018 The patient is now nearly postop day 1 status post occiput to C4 posterior instrument fusion. He is in the ICU for observation. He is overall doing quite well and his pain is well controlled. He is awake alert and oriented 4. He moves his upper and lower extremities well to command and equally except for his right proximal upper extremity that is limited secondary to his prior fracture and his right knee that is limited secondary to his baseline knee pain and contracture. His occipitocervical incision is clean dry and intact. He is wearing a rigid cervical collar at the patient says is putting a lot of pressure on his ear and mastoid areas. The patient is starting to tolerate liquids. He had mild hypotension earlier today but his blood pressure has now returned close to midline. His heart rate is in the normal range. He is urinating well. From a neurosurgical perspective, the patient can be transferred out of the ICU in a.m. and after working with physical therapy can be discharged back to his rehab facility. He is to follow-up with me in clinic in 2-3 weeks. We will request from orthotics to fit the patient with two new rigid cervical collars (1 for shower and one for other times). Activity is as tolerated. The patient's sutures are absorbable. The dressing can be removed in one week. He is to avoid the use of NSAID medications for the next 3-4 months as they can interfere with fusion. He will require aggressive postoperative physical therapy as he has been deconditioned for months and not ambulatory. FERMÍN ALCAZAR MD Apr 06, 2018 23:40
[2018-04-07] VITALS (20 sets, daily range): BP systolic 102–132; BP diastolic 62–101; PULSE 85–95; RESP 12–17
[2018-04-07] MEDS: HYDROCODONE/APAP (10/325) TAB PO SCH ×4 (01:42→19:30)
[2018-04-07] MEDS: PANTOPRAZOLE 40 MG INJ IV SCH (05:07)
[2018-04-07] MEDS: D5W-0.45 NACL + KCL 20 MEQ 1,000 ML IV SCH ×3 (05:09→15:23)
--- NOTE | 2018-04-07 05:37 | NUR ---
PATIENT REFUSED BED BATH. EDUCATED PATIENT ON IMPORTANCE OF BED BATH ESPECIALLY POST OPERATIVELY. PATIENT STILL REFUSED.
[2018-04-07] MEDS: DOCUSATE SODIUM 100 MG CAP PO SCH (08:19)
--- NOTE | 2018-04-07 08:25 | NUR ---
NURSING NOTE PATIENT REFUSED SKIN ASSESSMENT AT THIS TIME DUE TO PAIN. ADMINISTERED SCHEDULED [facility]CO FOR PAIN RELIEF, AND THIS RN WILL ATTEMPT TO ASSESS SKIN AGAIN AT A LATER TIME. DR. MCKENZIE AT BEDSIDE, AND HAD A DISCUSSION WITH THIS RN AND PATIENT REGARDING DISCHARGE TO NURSING FACILITY AFTER PHYSICAL THERAPY. PER DR. MCKENZIE, DR. ALCAZAR AGREEABLE TO DISCHARGE WELL. THIS RN UPDATED PATIENT ON PLAN OF CARE -- REMOVAL OF SHAW CATHETER AND PHYSICAL THERAPY. PATIENT EXPRESSED CONCERN OVER USING URINAL HE "IS NOT ABLE TO MOVE BODY TO PEE IN A URINAL. I DO NOT WANT MY SHAW TAKEN OUT JUST YET. I'M GETTING A LOT OF FLUIDS AND AM PEEING A LOT." THIS RN EDUCATED PATIENT ON NEED FOR SHAW CATHETER REMOVAL, AND RISK OF INFECTION OF PROLONGED INSERTION. THIS RN STATED SHE WOULD ASSIST PATIENT WITH URINAL USE; HOWEVER, PATIENT CONTINUED TO REFUSE. WILL ATTEMPT TO REMOVE SHAW CATHETER LATER TODAY. DR. MCKENZIE MADE AWARE. PATIENT ENCOURAGED TO PARTICIPATE IN PHYSICAL THERAPY LATER TODAY. THIS RN TO PROVIDE MEDICATION FOR PAIN RELIEF BEFOREHAND.
[2018-04-07] MEDS ORDERED: DOCU-159 PO (08:29)
[2018-04-07] MEDS ORDERED: BISA10SU55 PR (08:29)
[2018-04-07] MEDS ORDERED: HYDR-3609 PO (08:29)
[2018-04-07] MEDS ORDERED: TRAM50TA2 PO (08:29)
--- NOTE | 2018-04-07 08:30 | PDOCDIS ---
Discharge Instructions CONDITION [id number] Patient Condition: [id number] Good HOME CARE INSTRUCTIONS: [id number] Diet Instructions: [id number] Regular ACTIVITY: [id number] Activity Restrictions: [id number] Slowly Increase Activity FOLLOW UP/APPOINTMENTS Follow-up Plan Dr Welch 1 week PRECIOUS MCKENZIE MD Apr 07, 2018 08:30
--- NOTE | 2018-04-07 09:05 | DS ---
DATE OF ADMISSION: 04/04/2018 DATE OF DISCHARGE: 04/07/2018 DISCHARGE DIAGNOSES: 1. A 72-year-old male with non-healed C1-C2 facet subluxation and instability. 2. Status post occipital to C4 posterior instrumentation and posterior instrumented fusion and C1-C2 foraminotomy. 3. Chronic hypotension, stable. 4. Paroxysmal atrial fibrillation, converted to normal sinus rhythm. 5. History of deep vein thrombosis, status post inferior vena cava filter placement. 6. History of gastrointestinal bleed. HOSPITAL COURSE: A 72-year-old male status post traumatic fall in September of 2018 leading to a fractu re and non-healed C1-C2 facet subluxation and instability, was electively admitted by Dr. Welch for p osterior cervical laminectomy. On the first day, the patient was noted to have newly diagnosed atria l fibrillation. Surgery was initially canceled. The patient was seen and evaluated by Dr. Rushing. A 2D echo showed normal LV function. The patient converted back to normal sinus rhythm. He was taken to the operating room on hospital day #2. The patient underwent occipital to C4 posteri or instrumented fusion as well as C1-C2 foraminotomy. There were no intraoperative or postoperative complications. The patient remained neurologically stable. He is now in a stable condition to trans jessica back to senior care facility for physical therapy and rehabilitation. The patient will follo w up with Dr. Welch in 1 week. Dictated By: PRECIOUS KAYE/NTS Conf#: [id number] DID#: [id number] CC: FERMÍN WELCH MD; ENRIQUETA RUSHING MD; PRECIOUS MCKENZIE MD;*End*
--- NOTE | 2018-04-07 09:52 | NUR ---
CLOTH WINDING SUPERVISORMOBILE CRANE OPERATOR CLOTH WINDING SUPERVISOR ARRIVED TO UNIT. THIS RN NOTIFIED HIM OF PATIENT'S PLAN FOR DISCHARGE BACK TO FACILITY ([facility]). CLOTH WINDING SUPERVISOR ACKNOWLEDGED, AND INFORMED THIS RN THAT HAS BEEN UPDATED ON PATIENT'S STATUS/ PLAN OF CARE. CLOTH WINDING SUPERVISOR CURRENTLY AT BEDSIDE WITH PATIENT, AND PROVIDING UPDATE. Addendum: 04/07/18 at 1251 by CHARI GRUBBS RN THE CLOTH WINDING SUPERVISOR MENTIONED IN ATTACHED NOTE IS NOT [facility] STAFF. THIS RN LEFT MESSAGE FOR [facility] CLOTH WINDING SUPERVISOR, [facility].
--- NOTE | 2018-04-07 10:22 | CONS ---
Consult Date/Type/Reason Admit Date/Time Apr 04, 2018 at 06:30 Initial Consult Date Requesting Provider: PRECIOUS MCKENZIE MD Date/Time of Note DATE: 04/07/18 TIME: 10:20 Subjective Pt stable - alert and oriented - ICU now - dispo to rehab planned - in sinus, BP ok now. ROS: No fever, no chills, no nausea, no vomiting, no diarrhea/constipation No recent weight changes No chest pain, no PND, no orthopnea - improved SOB. No dizziness, blurred vision No thirst, no heat or cold intolerance Objective Vitals Vital Signs Date Temp Pulse Resp B/P (MAP) Pulse Ox O2 O2 Flow FiO2 Time Delivery Rate 04/07/18 91 08:00 04/07/18 13 107/69 100 Nasal 06:00 (82) Cannula 04/07/18 97.5 04:00 04/06/18 2.0 23:00 Intake and Output 04/06/18 04/06/18 04/07/18 1515:00 23:00 07:00 IntakeIntake Total 350 ml 800 ml 1300 ml OutputOutput Total 355 ml 440 ml 740 ml BalanceBalance -5 ml 360 ml 560 ml Exam General: WN/WD/NAD, AOx 3 HEENT: Unicetric/atraumatic/EOMI (follow commands) NECK: brace Lymph: no lymphadenopathy HEART: regular with no S3, II/ systolic murmur at apex LUNGS: Coarse sounds ABD: soft, NT, ND, +BS : Intact Neuro: non focal SKIN: chronic changes EXT: trace edema Results/Medications Result Diagram: 04/07/188 04/07/18447 Results 24 hrs Laboratory Tests Test 04/07/18 04:48 04/07/18 04:52 White Blood Count 16.0 #H Red Blood Count 3.81 L Hemoglobin 10.4 L Hematocrit 33.3 L Mean Corpuscular Volume 87.4 Mean Corpuscular Hemoglobin 27.3 L Mean Corpuscular Hemoglobin Concent 31.2 L Red Cell Distribution Width 17.2 H Platelet Count 188 # Mean Platelet Volume 8.7 Immature Granulocytes % 0.700 H Neutrophils % 81.6 H Lymphocytes % 6.0 L Monocytes % 10.7 Eosinophils % 0.7 Basophils % 0.3 Nucleated Red Blood Cells % 0.0 Immature Granulocytes # 0.110 H Neutrophils # 13.0 H Lymphocytes # 1.0 Monocytes # 1.7 H Eosinophils # 0.1 Basophils # 0.0 Nucleated Red Blood Cells # 0.0 Sodium Level 138 Potassium Level 4.8 Chloride Level 102 Carbon Dioxide Level 31 Anion Gap 5 Blood Urea Nitrogen 8 Creatinine 0.55 L Est Glomerular Filtrat Rate mL/min Glucose Level 110 Calcium Level 9.9 Lab Scanned Report REFERENCE LAB Home Meds Active Scripts Docusate Sodium* (Docusate Sodium*) 100 Mg Capsule, 100 MG PO BID for 10 Days, CAP Prov:PRECIOUS MCKENZIE MD 04/07/18 Bisacodyl (Dulcolax) 10 Mg Supp.rect, 10 MG NV DAILY PRN for .CONSTIPATION for 10 Days, SUPP.RECT Prov:PRECIOUS MCKENZIE MD 04/07/18 Tramadol HCl (Tramadol HCl) 50 Mg Tablet, 100 MG PO Q4H PRN for .PAIN 6-10 for 10 Days, TAB Prov:PRECIOUS MCKENZIE MD 04/07/18 Hydrocodone/Acetaminophen (Hydrocodone-Acetamin 10-325 mg) 1 Each Tablet, 2 TAB PO Q6H for 10 Days, TAB Prov:PRECIOUS MCKENZIE MD 04/07/18 Medications Current Medications IV Flush (NS 3 ml) 3 ml PER PROTOCOL IV ; Start 04/04/18 at 12:30 Metoprolol Tartrate (Lopressor) 2.5 mg Q4H PRN IV HR>110 Hold SBP<95; Start 04/04/18 at 15:30 Potassium Chloride/Dextrose/ Sod Cl 1,000 ml @ 100 mls/hr Q10H IV Last administered on 04/07/18at 05:09; Admin Dose 100 MLS/HR; Start 04/06/18 at 01:49 Acetaminophen/ Hydrocodone Bitart ([place] (10/325)) 2 tab Q6H PO Last administe red on 04/07/18at 08:20; Admin Dose 2 TAB; Start 04/06/18 at 02:00 Tramadol HCl (Ultram) 100 mg Q4H PRN PO .PAIN 6-10; Start 04/06/18 at 02:00 Hydromorphone HCl (Dilaudid) 0.2 mg Q1H PRN IV .BREAKTHROUGH PAIN Last administered on 04/06/18at 18:54; Admin Dose 0.2 MG; Start 04/06/18 at 02:00 Ondansetron HCl (Zofran Inj) 4 mg Q6H PRN IV NAUSEA/VOMITING; Start 04/06/18 at 02:00 Bisacodyl (Dulcolax Supp) 10 mg DAILY PRN NV .CONSTIPATION; Start 04/06/18 at 02:00 Docusate Sodium (Colace) 100 mg BID PO Last administered on 04/07/18at 08:19; Admin Dose 100 MG; Start 04/06/18 at 09:00 Pantoprazole (Protonix Iv) 40 mg DAILY@06 IV Last administered on 04/07/18at 05:07; Admin Dose 40 MG; Start 04/06/18 at 06:00 Naloxone HCl (Narcan) 0.2 mg Q2M PRN IV .RR 8 BREATHS/MIN OR LESS; Start 04/06/18 at 02:00 Assessment/Plan Hospital Course (Demo Recall) 1. Preoperative evaluation prior to a cervical neck surgery in a patient with history of myocardial infarction in atrial fibrillation which possibly may be previously noted in the history is written as an SVT.-neg trop >3/EF 45% by echo this admit with no sig valve abnl. -Now post-op s/p cervical fusion and laminectomy - tolerated procedure well - no CP now. 2. Abnormal electrocardiogram with inferior Qs. Assess for acute coronary syndrome - no CP now. 3. Supraventricular tachycardia consistent most probably with atrial fibrillation/atrial flutter with the mild rapid ventricular response now back in sinus rhythm by telemetry, sinus rhythm/sinus tachycardia.- Now back in SR 4. History of cardiomyopathy with decreased left ventricular unknown EF at this time - EF $%% now, not in CHF by exam. 5. Status post prior fall, mechanical by description, with cervical neck fracture - treated. 6. Cervical neck fracture. 7. Hypotension, borderline, with the history of hypertension on beta blockers at baseline - improved now. 8. History of myocardial infarction/coronary artery disease in 1990. 9, Hotn-borderline improved with IVF ZIYAD BECKWITH MD Apr 07, 2018 10:22
--- NOTE | 2018-04-07 10:46 | NUR ---
CERVICAL ASPEN COLLARS ORTHOTIC ORDER FAXED TO [facility]. THIS RN SPOKE WITH JON ([facility] SUPPLY DEPT.), AND THEY ARE CURRENTLY WORKING ON THE ORDER. Addendum: 04/07/18 at 1103 by CHARI GRUBBS RN [employer] CALLED TO CLARIFY ORDER (REQUEST IS FOR TWO COLLARS - ONE FOR SHOWER USE, ON FOR [id number] USE). TEAM WILL ARRIVE TO UNIT THIS AFTERNOON TO FIT/DELIVER COLLARS. Addendum: 04/07/18 at 1402 by CHARI GRUBBS RN THIS RN CALLED [facility] AT [phone] FOR UPDATE ON COLLAR DELIVERY. DISCHARGE TIME PENDING ON ARRIVAL AND FIT OF COLLARS. ANA WILL CALL BACK ONCE SHE GETS A HOLD OF INSPECTOR ALIGNING. Addendum: 04/07/18 at 1410 by CHARI GRUBBS RN KERRY JUNIOR CALLED, AND STATED THAT A STAFF MEMBER IS ON HIS WAY AND SHOULD ARRIVE IN ABOUT 20 MINUTES. WILL CALL JAY[facility] COATER OPERATOR INSULATION BOARD, AND PROVIDE UPDATE. Addendum: 04/07/18 at 1435 by CHARI GRUBBS RN [facility], AT BEDSIDE FOR COLLAR FITTING.
--- NOTE | 2018-04-07 12:49 | NUR ---
PT NOTE , Therapy day number 2 Subjective Current complaint of pain Pain Scale NUMERIC Pain Intensity 3 (0-10) Patient Stated Goal for Pain Relief 0 (0-10) Pain Level Comment NECK Pre Treatment Vital Signs Stable Yes - BP:107/69 HR:87 Exercise Assessment Label Bilat Lower Extremity Exercise Type Active ROM Additional Exercise Comments AP, KNEE FDLKEX, EXT, SAQ , SLR , ( RT KNEE FLEX.LIMITED ROM DUE TO PAIN FF Exercise Start Time 11:00 Exercise End Time 11:30 Total Exercise Time 30 min (8-127) Supine to Sit Maximum Assist Bed Mobility Sit to Supine Maximum Assist Sitting Tolerance 15 min Gait Assist Levels Dependent Assistive Devices Front Wheel Walker Ambulation Distance 0 feet Weight Bearing Assessment Label Bilat Lower Extremity Weight Bearing Status Full Weight Bearing Static Sitting Balance Fair Dynamic Sitting Balance Poor plus Safety Judgement Fair Activity Tolerance Poor Equipment Present IV pump Additional Equipment Present 02 2ML/NC Modalities RIGID CERVICAL COLLAR Post Treatment Pain Intensity 3 0-10 Quality Indicators Dizziness Variance Documentation P/S SEE PT NOTE . Total Treament Time 30 min (8-127) Total Minutes 30 Total Units 2 PT Technical Record Comment PT NOTE , RN CLEARED , PATIENT WITH MAX VC'S AND ENCOURAGEMENT AGREED TO BED SIDE EXE'S ANS SITTING AT EOB .PATIENT VERY ANXIOUS , REQUIRES CONSTANT VC'S FOR SAFETY AND TO SLOW DOWN . PATIENT PERFORMED A/ROM EXE'S BLE'S INCLUDING: AP, KNEE FLEX, EXT, SAQ , SLR , ( RT KNEE ROM FLEX . LIMITED DUE TO PAIN AND STIFFNESS), X2 2 SETS EACH 5 REPS , PATIENT WITH MAX A SAT UP AT EOB , ~ 12'-15', DUE TO GENERALIZED WEAKNESS , PAIN AND DIZZINESS REFUSED TO STAND UP RETURNED BACK TO BED WITH MOD/MAX X2 , VS STABLE TOLERATED TREATMENT WELL , RN NOTIFIED PATIENT'S PARTICIPATION IN PT SESSION . A: PER MD RECOMMENDATION PATIENT WILL BE DC TO SNF . P: CONTINUE WITH POC AND PROGRESS TO TORRES .
--- NOTE | 2018-04-07 12:49 | NUR ---
[facility] WORKSITE WELLNESS PRACTITIONEROPERATIONAL RISK MANAGER LEFT MESSAGE FOR [facility] WORKSITE WELLNESS PRACTITIONER, REGARDING PATIENT'S DISCHARGE BACK TO HIS FACILITY ([facility]). Addendum: 04/07/18 at 1404 by CHARI GRUBBS RN [id number] JAYRO, WORKSITE WELLNESS PRACTITIONER WITH [facility], RETURNED CALL. PATIENT WILL BE IN ROOM 53A AT [facility]. PHONE NUMBER FOR REPORT IS [phone]. AMBULANCE TRANSPORT TIME PENDING ASPEN COLLAR ARRIVAL TIME PENDING. THIS RN TO CALL JAYRO WITH TIME WHEN KNOWN. Addendum: 04/07/18 at 1407 by CHARI GRUBBS RN CORRECTION: [facility] PHONE NUMBER IS [phone] JAYRO'S NUMBER IS [phone] Addendum: 04/07/18 at 1419 by CHARI GRUBBS RN THIS RN CALLED JAYRO AND PROVIDED UPDATE. TRANSPORT SCHEDULED FOR 1829 PICKUP. [facility] TRIP# [id number] PROVIDER TAKING OVER CARE IS DR. HAWK. Addendum: 04/07/18 at 1836 by CHARI GRUBBS RN THIS RN CONTACTED RO ( ), AND SPOKE WITH KIMANI REGARDING ESTIMATED TIME OF ARRIVAL OF CREW. PER KIMANI, RO IS ABOUT TO ARRIVE AT ANY MOMENT. Addendum: 04/07/18 at 1908 by CHARI GRUBBS RN [facility], CALLED UNIT AND SPOKE WITH THIS RN. DELAYED OCCURRED, AND UNIT ORIGINALLY ASSIGNED TO THIS TRANSPORT IS NO LONGER ON SHIFT. TRANSPORT TO OCCUR WITH A DIFFERENT UNIT, AND NEW ESTIMATED TIME OF ARRIVAL IS 1999.
--- NOTE | 2018-04-07 14:05 | NUR ---
PATIENT'S AT BEDSIDE PATIENT UPDATED ON PLAN AND PATIENT'S CURRENT STATUS. SHE WILL BE TAKING PATIENT'S WHEELCHAIR.
--- NOTE | 2018-04-07 14:23 | NUR ---
SKIN ASSESSMENT/ CARE REFUSED I ATTEMPTED TO ASSESS PATIENT'S SKIN AND PROVIDE SKIN/WOUND CARE. PATIENT WAS GIVEN MEDICATION FOR PAIN RELIEF PRIOR TO ATTEMPTED ASSESSMENT. HOWEVER, PATIENT STATED "I'M COMFORTABLE AND I'M NOT GOING TO MOVE". I PROVIDED EDUCATION ON NEED FOR SKIN ASSESSMENT AND TREATMENT. PATIENT ADAMANTLY REFUSED. Addendum: 04/07/18 at 1536 by CHARI GRUBBS RN [id number] I WAS ABLE TO ASSESS SKIN OF POSTERIOR NECK DURING COLLAR FITTING. HOWEVER, PATIENT STILL REFUSED TO BE TURNED/MOVED FOR ASSESSMENT OF BACK/BUTTOCKS AREA. WILL ATTEMPT ASSESSMENT AGAIN PRIOR TO DISCHARGE.
--- NOTE | 2018-04-07 14:55 | NUR ---
PT NOTE , er 2 Subjective Current complaint of pain Pain Scale NUMERIC Pain Intensity 3 (0-10) Patient Stated Goal for Pain Relief 0 (0-10) Pain Level Comment NECK Pre Treatment Vital Signs Stable Yes Exercise Assessment Label Bilat Lower Extremity Exercise Type Active ROM Additional Exercise Comments AP, KNEE FLEX, EXT, SLR , SAQ. Exercise Start Time 14:10 Exercise End Time 14:35 Total Exercise Time 25 min (8-127) Additional Mobility Comments REFUSED SITTING UP AT EOB . Patient uses wheelchair Not Applicable Gait Assist Levels Dependent Weight Bearing Assessment Label Bilat Lower Extremity Weight Bearing Status Full Weight Bearing Safety Judgement Fair Activity Tolerance Fair Equipment Present A pump Douglas Catheter IV pump Additional Equipment Present 02 2ML/NC . Modalities RIGID CERVICAL COLLAR Post Treatment Pain Intensity 3 0-10 Variance Documentation P/S SEE PT NOTE . Total Treament Time 25 min (8-127) Total Minutes 25 Total Units 2 PT Technical Record Comment PT NOTE , RN CLEARED , PATIENT ONLY AGREEABLE TO BED SIDE EXE'S , PER MD ORDER PATIENT WILL BE DC IN PM AND WILL BE TRANSFER TO SNF, PATIENT ALSO AWAITING FOR HIS ASPEN COLLAR. PATIENT FOUND IN BED IN SEMI-SITTING , RE-INSTRUCTED HIM IN SAFETY , LOG ROLL TR AND SPINE PRECAUTION , PATIENT ABLE TO PERFORM A/ROM EXE'S BLE'S INCLUDING: AP, KNEE FLEX, EXT, SAQ , SLR AND ISOMETRIC EXE'S BLE'S , ROM RT KNE LIMITED DUE TO PAIN , WEAKNESS AND STIFFNESS, PATIENT UNWILLING TO SIT UP /STAND UP TODAY, RN NOTIFIED PATIENT'S PARTICIPATION IN PT SESSION. A: PER MD RECOMMENDATION PATIENT WILL RETURN TO SNF. P: CONTINUE WITH POC AND PROGRESS TO TORRES .
--- NOTE | 2018-04-07 16:49 | NUR ---
DEANA BEJARANO REH THIS RN CALLED REHAB TO PROVIDE PATIENT REPORT. SPOKE WITH CRISTIANA PRIEST. ALL QUESTIONS ADDRESSED. Addendum: 04/07/18 at 1919 by CHARI GRUBBS RN CALLED DEANA BEJARANO, AND PROVIDED NEW ETA.
--- NOTE | 2018-04-07 19:27 | NUR ---
END OF SHIFT SUMMARY Patient awake and alert, and able to follow commands. Patient afebrile. SR. Room air. Regular diet. No bowel movement. Urine output as charted. Skin assessed, but treatment not able to be done due to patient refusal. Patient turned/repositioned as much as possible since patient refused some turns. Comfort and safety measures/ fall precautions in place. Surgical dressing in place. [place] collar on. Plan for discharge to [facility] at 2000 today. Patient and updated on patient's status, and plan of care. All of patient's needs met, and no acute distress/events. Endorsed care to CRISTIANA Ceja.
--- NOTE | 2018-04-07 19:50 | NUR ---
nurses notes: [facility] chair with linens sent with the pt, discharge summary given , report given. previous nurse called the Nursing Facility and also report was given. pt. denies any pain and discomfort, no sob, v/s stable, no change on level of consciousness. pt. with [place] collar on.
== END 2018-04-07 19:58 | DRG 471 ==
LOC: REC 06:30 → 6WM 12:43 → ICU 04-05 17:50
PROVIDERS: ADMIT Neurological Surgery; ATTEND Internal Medicine
PROC: 0RG2071 Fusion of 2 or more Cervical Vertebral Joints with Autologous Tissue Substitute, Posterior Approach, Posterior Column, Open Approach (ICD-10-PCS; 2018-04-05)
PROC: 0RG Upper Joints, Fusion (ICD-10-PCS; principal; 2018-04-05 17:00)
DX: S12.110A Anterior displaced Type II dens fracture, initial encounter for closed fracture (principal); I77.74 Dissection of vertebral artery; I47.1 Supraventricular tachycardia; I48.92 Unspecified atrial flutter; I50.20 Unspecified systolic (congestive) heart failure; I42.9 Cardiomyopathy, unspecified; S12.190A Other displaced fracture of second cervical vertebra, initial encounter for closed fracture; M40.204 Unspecified kyphosis, thoracic region; I25.10 Atherosclerotic heart disease of native coronary artery without angina pectoris; E03.9 Hypothyroidism, unspecified; R94.31 Abnormal electrocardiogram [ECG] [EKG]; I11.0 Hypertensive heart disease with heart failure; I95.9 Hypotension, unspecified; I48.0 Paroxysmal atrial fibrillation; E78.5 Hyperlipidemia, unspecified; I25.2 Old myocardial infarction; Z85.89 Personal history of malignant neoplasm of other organs and systems; Z92.3 Personal history of irradiation; Z86.718 Personal history of other venous thrombosis and embolism; Z87.891 Personal history of nicotine dependence; W19.XXXA Unspecified fall, initial encounter; Z87.19 Personal history of other diseases of the digestive system
CPT/HCPCS: 71045; 72040; 80048; 80061; 83036; 83880; 84443; 84484; 85025; 86850; 86900; 86901; 86920; 87081; 93005; 93306; 97110; 97163; C1713; C9113; J0690; J1170; J2250; J2270; J2370; J2405; J3010; J3480; J7030; J7040